=== PATIENT | female | born 1970 | race Asian ===

== ENCOUNTER 2017-05-05 10:36 | Emergency (ER) | payer BC ==
[~2017-05-05] VITALS: Ht 154.9 cm; Wt 50.0 kg
[2017-05-05 10:39] VITALS: Ht 154.9 cm; Wt 50.0 kg
[2017-05-05] MEDS ORDERED: LIDOCAINE/MYLANTA 40 ML BTL PO STA (11:00)
[2017-05-05] MEDS ORDERED: ONDANSETRON 4 MG INJ IV STA (11:00)
[2017-05-05] MEDS ORDERED: FAMOTIDINE 20 MG TAB PO STA (11:00)
[2017-05-05 11:51] LABS: BASOPHILS % 0.3 % (0.0-2.0); EOSINOPHILS % 0.3 % (0.0-7.0); HEMATOCRIT 39.5 % (37.0-47.0); HEMOGLOBIN 12.9 g/dl (12.0-16.0); LYMPHOCYTES # 1.2 10^3/ul (0.8-2.9); LYMPHOCYTES % 15.3 % (15.0-51.0); MEAN CORPUSCULAR HEMOGLOBIN 26.4 pg (29.0-33.0); MEAN CORPUSCULAR HGB CONC 32.7 g/dl (32.0-37.0); MEAN CORPUSCULAR VOLUME 80.9 fl (82.0-101.0); MEAN PLATELET VOLUME 10.1 fl (7.4-10.4); MONOCYTE # 0.3 10^3/ul (0.3-0.9); MONOCYTES % 3.8 % (0.0-11.0); PLATELET COUNT 239 10^3/UL (140-415); RED BLOOD COUNT 4.88 10^6/ul (4.20-5.40); RED CELL DISTRIBUTION WIDTH 13.7 % (11.5-14.5); WHITE BLOOD COUNT 7.8 10^3/ul (4.8-10.8)
--- NOTE | 2017-05-05 11:54 | RADRPT ---
PROCEDURE: Abdominal Ultrasound (right upper quadrant). CLINICAL INDICATION: Abdominal pain TECHNIQUE: Multiple real-time longitudinal and transverse images of the right upper quadrant of th e abdomen were acquired utilizing a curved array transducer. Images were reviewed on a high-resoluti on PACS workstation. COMPARISON: None FINDINGS: The liver is normal in size and echogenicity. No focal masses are identified. There is no evidenc e of intra or extrahepatic ductal dilatation. The common bile duct measures 3.8 mm in diameter. No gallstones or gallbladder wall thickening is seen. The visualized portions of the pancreas are unremarkable with obscuration of the tail of the pancrea s. There is trace abdominal ascites. There is no evidence of right hydronephrosis or renal calcification. The right kidney measures 9.5 cm in length. The visualized portions of the aorta and inferior vena cava are within normal limits. IMPRESSION: 1. Trace abdominal ascites. 2. Otherwise unremarkable right upper quadrant ultrasound. RPTAT: KK .Hamilton Alves MD, MD Date Time Electronically viewed and signed by .Hamilton Alves MD, MD on 05/05/2017 11:53 .B/
[2017-05-05 12:00] LABS: ADD UMIC YES; UR ASCORBIC ACID 20 mg/dL (NEGATIVE); UR BACTERIA FEW /HPF (NONE SEEN); UR BILIRUBIN (Dip) NEGATIVE (NEGATIVE); UR BLOOD (Dip) NEGATIVE (NEGATIVE); UR CLARITY CLOUDY (CLEAR); UR COLOR YELLOW (YELLOW); UR GLUCOSE (Dip) NEGATIVE (NEGATIVE); UR KETONES (Dip) 1+ mg/dL (NEGATIVE); UR LEUKOCYTE ESTERASE (Dip) 1+ Leu/ul (NEGATIVE); UR NITRITE (Dip) NEGATIVE (NEGATIVE); UR RBC 3 /HPF (0-5); UR SPECIFIC GRAVITY (Dip) 1.019 (1.003-1.030); UR SQUAMOUS EPITHELIAL CELL FEW /HPF (FEW); UR TOTAL PROTEIN (Dip) NEGATIVE (NEGATIVE); UR UROBILINOGEN (Dip) NEGATIVE (NEGATIVE)
[2017-05-05 12:15] LABS: ALBUMIN 4.8 g/dl (3.3-4.9); ALBUMIN/GLOBULIN RATIO 1.14; BILIRUBIN,INDIRECT 0.5 mg/dl (0-1.1); BILIRUBIN,TOTAL 0.5 mg/dl (0.2-1.3); CALCIUM 9.8 mg/dl (8.4-10.2); CREATININE 0.67 mg/dl (0.44-1.00); POTASSIUM 4.1 mmol/L (3.5-5.1)
[2017-05-05] MEDS ORDERED: SOD CHLORIDE 0.9% 100 ML ONE (14:50)
[2017-05-05] MEDS ORDERED: IOHEXOL 300MG/ML 150 ML BTL ONE (14:51)
--- NOTE | 2017-05-05 15:12 | RADRPT ---
PROCEDURE: CT Abdomen and Pelvis with contrast. CLINICAL INDICATION: Abdominal pain TECHNIQUE: CT of the abdomen and pelvis was performed on a multi-detector scanner following the un complicated IV administration of 90 cc of Omnipaque 300. Coronal and sagittal images were reformatt ed from the axial data set. One or more of the following dose reduction techniques were used: autom ated exposure control, adjustment of the mA and/or kV according to patient size, use of iterative r econstruction technique. CTDI = 5.58 mGy. DLP = 281.76 mGy-cm. COMPARISON: Ultrasound, 05/05/2017 FINDINGS: CT abdomen: The lung bases are clear. The heart size is normal, without pericardial effusion. Liver, gallbladd er, biliary tree, pancreas, spleen, adrenal glands and kidneys are unremarkable. No urolithiasis or obstructive uropathy is identified. The stomach is grossly unremarkable. There is no abdominal aortic aneurysm or dissection. There is no retroperitoneal lymphadenopathy. The yolette hepatis region is clear. CT pelvis: There is moderate to severe dilatation of proximal small bowel, with collapsed distal ileal loops, c onsistent with small bowel obstruction. Transition point is identified in the periumbilical region. No focal obstructive lesion is seen - etiology may be adhesions. Small to mild amount of peritone al free fluid is present, likely reactive. There is no free intraperitoneal air or abscess. No jamee endicitis or colitis is identified. Urinary bladder is grossly unremarkable. Uterus is surgically absent. No pelvic mass or lymphadenopathy is identified. The surrounding osseous structures are remarkable for degenerative enthesopathy of the spine. No os teolytic or osteoblastic lesion is detected. IMPRESSION: 1. Findings consistent with small bowel obstruction, possibly adhesive, as discussed above. 2. Uterus is surgically absent. 3. There is no evidence of bowel perforation or abscess formation. 4. No mass or lymphadenopathy is identified. RPTAT: RR .Leland Huerta MD, Date Time Electronically viewed and signed by .Leland Huerta MD, MD on 05/05/2017 15:12 .R/
[2017-05-05] MEDS ORDERED: TRAM50TA2 PO (15:24)
[2017-05-05] MEDS ORDERED: FAMO-96 PO (15:24)
[2017-05-05] MEDS ORDERED: DOCU-144 PO (15:24)
--- NOTE | 2017-05-05 15:30 | ERD ---
ER Documentation Chief Complaint Date/Time DATE: 05/05/17 TIME: 15:28 Chief Complaint ap with nausea since last night HPI This 46-year-old female presents with 1 day history of epigastric or periumbilical abdominal pain. She has nausea but no vomiting. She had normal bowel movement today. She denies fevers. She denies any lower or localized right-sided abdominal pain. History significant for ovarian cancer stage Ic treated with hysterectomy and oophorectomy approximately 2 years ago. She had chemotherapy. She does not appear to be getting regular follow-up ROS All systems reviewed and are negative except as per history of present illness. Medications Home Meds Active Scripts Famotidine* (Pepcid*) 20 Mg Tablet, 40 MG PO Q DAY for 30 Days, #30 TAB Prov:MARIAH STANLEY MD 05/05/17 Docusate Sodium* (Colace*) 100 Mg Capsule, 100 MG PO BID, #30 CAP Prov:MARIAH STANLEY MD 05/05/17 Tramadol HCl (Tramadol HCl) 50 Mg Tablet, 50 MG PO Q4 Y for PAIN, #15 TAB Prov:MARIAH STANLEY MD 05/05/17 PMhx/Soc History of Surgery: Yes (hysterectomy) Anesthesia Reaction: No Hx Neurological Disorder: No Hx Respiratory Disorders: No Hx Cardiac Disorders: No Hx Psychiatric Problems: No Hx Miscellaneous Medical Probl: Yes (ovarian ca, right eye surgery, ) Hx Alcohol Use: No Hx Substance Use: No Hx Tobacco Use: No Smoking Status: Never smoker Physical Exam Vitals Vital Signs Date Time Temp Pulse Resp B/P Pulse Ox O2 Delivery O2 Flow Rate FiO2 05/05/17 10:39 98.6 86 18 134/74 99 Physical Exam Const: [], Not Head: Atraumatic Eyes: Normal Conjunctiva ENT: Normal External Ears, Nose and Mouth. Neck: Full range of motion..~ No meningismus. Resp: Clear to auscultation bilaterally Cardio: Regular rate and rhythm, no murmurs Abd: Soft, mild periumbilical tenderness. No rebound. No tenderness at McBurney's point no Walters sign non distended. Normal bowel sounds Skin: No petechiae or rashes Back: No midline or flank tenderness Ext: No cyanosis, or edema Neur: Awake and alert Psych: Normal Mood and Affect Result Diagram: 05/05/17 1117 05/05/17 1117 Results 24 hrs Laboratory Tests Test 05/05/17 11:07 05/05/17 11:17 Urine Color YELLOW Urine Clarity CLOUDY Urine pH 8.0 Urine Specific [place] 1.019 Urine Ketones 1+mg/dL Urine Nitrite NEGATIVEmg/dL Urine Bilirubin NEGATIVEmg/dL Urine Urobilinogen NEGATIVEmg/dL Urine Leukocyte Esterase 1+Jacob/ul Urine Microscopic RBC 3/HPF Urine Microscopic WBC 11/HPF Urine Squamous Epithelial Cells FEW/HPF Urine Calcium Oxalate Crystals FEW/HPF Urine Bacteria FEW/HPF Urine Hemoglobin NEGATIVEmg/dL Urine Glucose NEGATIVEmg/dL Urine Total Protein NEGATIVEmg/dl White Blood Count 7.810^3/ul Red Blood Count 4.8810^6/ul Hemoglobin 12.9g/dl Hematocrit 39.5% Mean Corpuscular Volume 80.9fl Mean Corpuscular Hemoglobin 26.4pg Mean Corpuscular Hemoglobin Concent 32.7g/dl Red Cell Distribution Width 13.7% Platelet Count 39757^3/UL Mean Platelet Volume 10.1fl Neutrophils % 80.0% Lymphocytes % 15.3% Monocytes % 3.8% Eosinophils % 0.3% Basophils % 0.3% Nucleated Red Blood Cells % 0.0/100WBC Neutrophils # (Manual) 610^3/ul Lymphocytes # 1.210^3/ul Monocytes # 0.310^3/ul Eosinophils # 0.010^3/ul Basophils # 0.010^3/ul Nucleated Red Blood Cells # 0.010^3/ul Sodium Level 143mmol/L Potassium Level 4.1mmol/L Chloride Level 98mmol/L Carbon Dioxide Level 29mmol/L Anion Gap 20 Blood Urea Nitrogen 12mg/dl Creatinine 0.67mg/dl Glucose Level 102mg/dl Calcium Level 9.8mg/dl Total Bilirubin 0.5mg/dl Direct Bilirubin 0.00mg/dl Indirect Bilirubin 0.5mg/dl Aspartate Amino Transf (AST/SGOT) 27IU/L Alanine Aminotransferase (ALT/SGPT) 32IU/L Alkaline Phosphatase 106IU/L Total Protein 9.0g/dl Albumin 4.8g/dl Globulin 4.20g/dl Albumin/Globulin Ratio 1.14 Lipase 58U/L Current Medications Medications (Trade) Dose Ordered Sig/Tenisha Route PRN Reason Start Time Stop Time Status Last Admin Dose Admin Ondansetron HCl (Zofran Inj) 4 mg ONCE STAT IV 05/05/17 11:00 05/05/17 11:02 DC 05/05/17 11:15 Famotidine (Pepcid) 20 mg ONCE STAT PO 05/05/17 11:00 05/05/17 11:02 DC 05/05/17 11:14 Miscellaneous Medication (Gi Cocktail (2)) 40 ml ONCE STAT PO 05/05/17 11:00 05/05/17 11:03 DC 05/05/17 11:14 IV Flush 10 ml 10 ml STK-MED ONCE .ROUTE 05/05/17 14:50 05/05/17 14:51 DC Sodium Chloride (NS) 100 ml @ ud STK-MED ONCE .ROUTE 05/05/17 14:50 05/05/17 14:51 DC Iohexol (Omnipaque 300mg/ ml) 150 ml STK-MED ONCE .ROUTE 05/05/17 14:51 05/05/17 14:52 DC Procedures/MDM IV was obtained. CBC and CMP and lipase normal. Urine is negative. Right upper quadrant ultrasound shows no acute abnormalities although trace free fluid in the abdomen. Patient was given GI cocktail and Zofran and Pepcid 20 mg by mouth. Patient had improvement in pain although persistent periumbilical pain. Given the uncertain cause of pain with a history of ovarian cancer CT abdomen pelvis with IV contrast was obtained which shows a small bowel obstruction with the focus being periumbilical. There is no evidence of abscess or additional acute findings. She presents with epigastric or periumbilical pain and nausea and signs of small bowel obstruction on CT scan although patient is having bowel movements and has no vomiting seem to require NG tube in further study. Recommend a bland diet and further observation at home. She will treated with Zofran and Pepcid and tramadol and primary care and general surgery follow-up. She should return for fevers, vomiting, worsening pain, constipation, new worsening symptoms or primary doctor this week. Departure Diagnosis: Primary Impression: Abdominal pain Abdominal location: periumbilical Qualified Code: R10.33 - Periumbilical abdominal pain Condition: Stable Patient Instructions: Abdominal Pain Additional Instructions: Findings of mild obstruction on CT scan but likely mild due to ability to defecate and no vomiting. Drink bland diet and fluids at home. See surgery for further evaluation treatment. Recheck for vomiting, fevers, worsening pain , no bowel movements, new or worsening symptoms MARIAH STANLEY MD May 05, 2017 15:30
[2017-05-05] MEDS ORDERED: ONDA8TAB14 PO (15:31)
[2017-05-05 15:59] VITALS: BP 124/66; PULSE 79; RESP 18
== END 2017-05-05 16:03 | disposition home or self-care (01) ==
LOC: FTE 10:36
DX: R10.33 Periumbilical pain (principal); R11.0 Nausea; Z85.43 Personal history of malignant neoplasm of ovary
CPT/HCPCS: 36415; 74177; 76705; 80053; 81001; 83690; 85025; 96374; 99285; J2405; Q9967